=== PATIENT | female | born 1990 | race Caucasian/White ===

== ENCOUNTER 2020-08-24 10:12 | Emergency (ER) | payer OTHER, SELFPAY ==
[2020-08-24 10:33] VITALS: BP 139/70; PULSE 99; RESP 18; TEMP 37.4; O2SAT 100; BMI 27.8
--- NOTE | 2020-08-24 10:41 | DI.US.S_ITS ---
PROCEDURE: US OB <= 14 WEEKS FETUS INDICATIONS: potential spontaneous OUTSIDE/PRIOR DATING DATA: Last menstrual period (LMP): Not given. LMP-based estimated date of delivery (HUSAM): Unknown. TECHNIQUE: Real-time scanning was performed of the fetus and maternal pelvic organs, with image documentation. Endovaginal scanning was also performed to better visualize the fetus and maternal ovaries. COMPARISON: None. FINDINGS: Embryo: No findings of an intrauterine can be seen. No endometrial stripe thickening or abnormal vascularity can be seen. No endometrial cysts can be seen. Measurement variability in dating: +/- 4 weeks by LMP, +/- 7 days by mean sac diameter (use before 6 weeks gestation if crown-rump length not able to be measured), +/- 5 days by crown-rump length (up to 8 weeks 6 days gestation), +/- 7 days by crown-rump length (up to 13 weeks 6 days gestation). Maternal organs: The right ovary measures 3.6 x 1.7 x 1.8 cm. The left ovary measures 2.9 x 1.9 x 2.3 cm. The ovaries have a normal sonographic appearance. Normal appearing arterial waveforms are confirmed to each ovary. No adnexal masses are seen. The uterus measures 8.1 x 4.1 x 5.2 cm. No free fluid can be seen. IMPRESSION: No findings of an intrauterine can be seen. These imaging findings are most compatible with a completed spontaneous miscarriage. Differential diagnosis includes ectopic , yet this is considered to be much less likely. No adnexal masses or free pelvic fluid can be seen. Close clinical followup, with serial beta-hCG and serial ultrasound are recommended, if clinically appropriate. Dictated by: Isidro Manning M.D. on 08/24/2020 at 11:09 Approved by: Isidro Manning M.D. on 08/24/2020 at 11:12
--- NOTE | 2020-08-24 11:02 | ED.PREGNANCY ---
HPI - General Chief complaint: Vaginal Bleeding Stated complaint: miscarriage Time Seen by Provider: 08/24/20 10:36 Source: patient Mode of arrival: Ambulatory Limitations: no limitations History of Present Illness HPI Narrative: Patient is a 30-year-old female G8 P to presenting with vaginal bleeding and clotting. Last menstrual period was July 23. [place] She said the 1st number was 2nd number was 16 yesterday. She had some mild spotting yesterday however this morning she has bright red blood and some clots. She has some mild cramping. She has had 1 D&C she had a late miscarriage at 25 weeks all other miscarriages have been under 10 weeks. She and her are trying to conceive a 3rd child. She has been referred to [facility] for her OBGYN care but has not yet established care with anyone. Complaint: vaginal bleeding Onset (ago): day(s) Related Data Allergies Allergy/AdvReac Type Severity Reaction Status Date / Time oxycodone Allergy Mild Rash Verified 08/24/20 10:33 Review of Systems Review of Systems Narrative: GENERAL: Denies chills, fatigue, malaise, fever, sweats, travel HEENT: Denies sinus pain, ear pain, sore throat, difficulty swallowing, neck pain RESPIRATORY: Denies dyspnea, cough, wheezing, hemoptysis, sputum. CARDIOVASCULAR: Denies chest pain, palpitations, orthopnea, edema GASTROINTESTINAL: Denies nausea, vomiting, abdominal pain, diarrhea, constipation, melena. : Denies dysuria, frequency, incontinence, hematuria, urinary retention, flank pain. 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 HEENT: Head atraumatic,EOMI, pupils reactive, face symmetric, moist mucous membranes CARDIOVASCULAR: Regular rate and rhythm without murmurs, rubs or gallops. RESPIRATORY: Breath sounds equal bilaterally, no wheezes rales or rhonchi. ABDOMEN: Soft, nontender. Normoactive bowel sounds all 4 quadrants. No guarding or rebound. EXTREMITIES: Normal range of motion, no clubbing or edema. Neurovascularly intact NEUROLOGICAL: Alert and oriented x4.Normal gait and speech. SKIN: Warm, dry, no laceration, no petechiae, no rashes or lesions. Course Orders Ordered: ED Orders 08/24/20 10:41 US OB <= 14 weeks fetus Stat 08/24/20 10:55 ABO RH Type Stat Complete Blood Count AUTO DIFF Stat Comprehensive Metabolic Panel Stat HCG Quantitative /Beta subunit Stat Vital Signs Vital signs: Vital Signs - 8 hr 08/24/20 10:33 08/24/20 12:38 Temperature 99.3 F Pulse Rate 99 H 85 Respiratory Rate 18 Blood Pressure 139/70 121/74 Pulse Oximetry 100 98 MDM - OB/Uterine Contractions Lab Data Attestation: I reviewed the patient's lab results. Result diagrams: 08/24/20 10:55 08/24/20 10:55 Labs: Lab Results 08/24/20 08/24/20 08/24/20 Range/Units 10:55 10:55 10:55 WBC 4.6 (4.5-11.0) X10^3/uL RBC 4.23 (4.0-5.2) X10^6/uL Hgb 13.3 (12.0-16.0) g/dL Hct 38.6 (36-46) % MCV 91.4 (80-100) fL MCH 31.5 (26-34) PG MCHC 34.5 (30-36) % RDW 12.9 (11.6-14.8) % Plt Count 270 (150-400) X10^3/uL Neut % (Auto) 57.5 (50-75) % Lymph % (Auto) 32.1 (25-40) % [place]pie % (Auto) 8.0 (3-14) % Eos % (Auto) 1.8 L (2-4) % Baso % (Auto) 0.6 (0-2) % Neut # (Auto) 2600 (4612-3280) /uL Lymph # (Auto) 1500 (9374-9491) /uL Gillespie # (Auto) 400 (0-900) /uL Eos # (Auto) 100 (0-450) /uL Baso # (Auto) 0 (0-100) /uL Sodium 138 (137-145) mmol/L Potassium 4.0 (3.4-5.1) mmol/L Chloride 105 (98-107) mmol/L Carbon Dioxide 28 (22-32) mmol/L BUN 13 (7-17) mg/dL Creatinine 0.54 (0.52-1.04) mg/dL Estimated GFR > 60.0 (>60) mL/min BUN/Creatinine Ratio 24.1 H (6-22) Glucose 102 H (70-100) mg/dL Calcium 9.2 (8.4-10.2) mg/dL Total Bilirubin 0.1 L (0.2-1.3) mg/dL AST 25 (14-36) IU/L ALT 26 (<35) IU/L Alkaline Phosphatase 75 (38-126) U/L Total Protein 7.5 (6.3-8.2) g/dL Albumin 4.5 (3.5-5.0) g/dL Globulin 3.0 (1.7-4.1) g/dL Albumin/Globulin Ratio 1.5 (1.0-2.8) HCG, Quant 20.3 mIU/mL Blood Type B Positive Point of Care Testing Test Results Negative Urine Dip Bedside Urine Glucose Negative Bedside Urine Bilirubin - Negative Bedside Urine Ketone - Negative Urine Specific [place] 1.020 Bedside Urine Occult Blood +++ Bedside Urine pH 7.5 Bedside Urine Protein - Negative Bedside Urine Urobilinogen - Negative Bedside Urine Nitrite - Negative Bedside Urine Leukocytes - Negative Esterase Imaging Data US - OB: Radiologist's Impression: PROCEDURE: US OB <= 14 WEEKS FETUS INDICATIONS: potential spontaneous OUTSIDE/PRIOR DATING DATA: Last menstrual period (LMP): Not given. LMP-based estimated date of delivery (HUSAM): Unknown. TECHNIQUE: Real-time scanning was performed of the fetus and maternal pelvic organs, with image documentation. Endovaginal scanning was also performed to better visualize the fetus and maternal ovaries. COMPARISON: None. FINDINGS: Embryo: No findings of an intrauterine can be seen. No endometrial stripe thickening or abnormal vascularity can be seen. No endometrial cysts can be seen. Measurement variability in dating: +/- 4 weeks by LMP, +/- 7 days by mean sac diameter (use before 6 weeks gestation if crown-rump length not able to be measured), +/- 5 days by crown-rump length (up to 8 weeks 6 days gestation), +/- 7 days by crown-rump length (up to 13 weeks 6 days gestation). Maternal organs: The right ovary measures 3.6 x 1.7 x 1.8 cm. The left ovary measures 2.9 x 1.9 x 2.3 cm. The ovaries have a normal sonographic appearance. Normal appearing arterial waveforms are confirmed to each ovary. No adnexal masses are seen. The uterus measures 8.1 x 4.1 x 5.2 cm. No free fluid can be seen. IMPRESSION: No findings of an intrauterine can be seen. These imaging findings are most compatible with a completed spontaneous miscarriage. Differential diagnosis includes ectopic , yet this is considered to be much less likely. No adnexal masses or free pelvic fluid can be seen. Close clinical followup, with serial beta-hCG and serial ultrasound are recommended, if clinically appropriate. Dictated by: Isidro Manning M.D. on 08/24/2020 at 11:09 MDM Narrative Medical decision making narrative: The patient her removed to 20 minutes although according to patient is still rising. However ultrasound is concerning for miscarriage also I would suspect that she would be much higher actually is. Patient is aware she has had multiple miscarriages in the past. Or warning signs of when to return to the ED. Discharge Plan Departure Patient Disposition: Home Clinical Impression: , threatened Instructions: Threatened Miscarriage Activity Restrictions/Additional Instructions: HCG today equals 20 *You have been diagnosed with threatened *What to do: Highly suspect miscarriage at this time. You may want to try fertility acupuncture. One place is [facility] in [place], [place] *Continue to take medications as directed *Follow up with your primary care provider in 2-3 days *Return to ER if you should have heavy vaginal bleeding more than 2 pads an hour, intense pain fever or any new, worsening or concerning symptoms Referrals: Shira Zazueta MD [Physician] - Nicky Cintron MD [Physician] - Shonna Lopez MD [Physician] -
[2020-08-24 11:07] LABS: Add Manual Diff / Slide Review NO; Basophils Absolute Auto 0 /uL (0-100); Basophils Percent Auto 0.6 % (0-2); Eosinophils Absolute Auto 100 /uL (0-450); Eosinophils Percent Auto 1.8 % (2-4); Hematocrit 38.6 % (36-46); Hemoglobin 13.3 g/dL (12.0-16.0); Lymphocytes Absolute Auto 1500 /uL (1100-4500); Lymphocytes Percent Auto 32.1 % (25-40); Mean Corpuscular HGB Conc 34.5 % (30-36); Mean Corpuscular Hemoglobin 31.5 PG (26-34); Mean Corpuscular Volume 91.4 fL (80-100); Monocytes Absolute Auto 400 /uL (0-900); Neutrophils Absolute Auto 2600 /uL (1500-7000); Neutrophils Percent Auto 57.5 % (50-75); Platelet Count 270 X10^3/uL (150-400); Red Blood Cell Count 4.23 X10^6/uL (4.0-5.2); Red Cell Distribution Width 12.9 % (11.6-14.8); White Blood Cell Count 4.6 X10^3/uL (4.5-11.0)
[2020-08-24 11:30] LABS: Alanine Aminotransferase 26 IU/L (<35); Albumin 4.5 g/dL (3.5-5.0); Albumin Globulin Ratio 1.5 (1.0-2.8); Alkaline Phosphatase 75 U/L (38-126); Aspartate Aminotransferase 25 IU/L (14-36); BUN Creatinine Ratio 24.1 (6-22); Bilirubin Total 0.1 mg/dL (0.2-1.3); Blood Urea Nitrogen 13 mg/dL (7-17); Calcium 9.2 mg/dL (8.4-10.2); Carbon Dioxide 28 mmol/L (22-32); Chloride 105 mmol/L (98-107); Estimated Glomerular Filt Rate > 60.0 mL/min (>60); Glucose 102 mg/dL (70-100); HEMOLYSIS < 15 (0-50); Sodium 138 mmol/L (137-145); Total Protein 7.5 g/dL (6.3-8.2)
[2020-08-24 11:46] LABS: HCG Quantitative /Beta subunit 20.3 mIU/mL
[2020-08-24 12:38] VITALS: BP 121/74; PULSE 85; O2SAT 98
== END 2020-08-24 12:39 | disposition home or self-care (01) ==
PROVIDERS: Emergency Provider Emergency Medicine
DX: O20.0 Threatened abortion (principal)
CPT/HCPCS: 36415; 76801; 76830; 80053; 81003; 81025; 84702; 85025; 86900; 86901; 99281; 99284